=== PATIENT | female | born 1955 | race Hispanic/Latino ===

== ENCOUNTER 2022-04-02 08:15 | Inpatient (IN) | payer MEDICARE ==
[2022-04-02 08:55] LABS: #Eosinphils 0.1 10x3/uL (0.0-0.5); #Monocytes 0.4 10x3/uL (0.0-1.1); #Neutrophils 3.9 10x3/uL (1.5-8.4); %Basophils 0.7 % (0.0-2.0); %Eosinophils 1.2 % (0.0-6.0); %Lymphocytes 24.2 % (18.0-47.0); %Neutrophils 66.6 % (40.0-75.0); Hemoglobin 12.5 g/dL (12.0-15.5); Mean Corpuscular HGB CONC 32.6 g/dL (32.0-36.0); Mean Corpuscular Hemoglobin 30.2 pg (27.0-33.0); Mean Corpuscular Volume 92.5 fl (81.6-98.3); Mean Platelet Volume 8.5 fl (7.4-10.4); Platelet Count 266 10x3/uL (150-450); RBC Distribution Width 12.4 % (11.5-14.5); Red Blood Cell (RBC) Count 4.14 10x6/uL (3.90-5.03); White Blood Cell (WBC) Count 5.8 10x3/uL (3.5-10.5)
[2022-04-02 09:06] LABS: Bilirubin Neg (Negative); Blood, Urine 25 (Negative); Clarity Clear (Clear); Glucose, Urine (Dipstick) Normal (Negative); Ketone, Urine 150 mg/dL (Negative); Leukocyte Negative (Negative); Nitrite Negative (Negative); Protein, Urine (Dipstick) 30 mg/dl (Neg-Trace)
[2022-04-02 09:13] LABS: Amphetamine Not Detected (NotDetected); Barbiturates Screen Not Detected (NotDetected); Benzodiazepine Screen Not Detected (NotDetected); Cocaine Metabolite Screen Not Detected (NotDetected); Methadone Not Detected (NotDetected); Methamphetamine Not Detected (NotDetected); Opiate Screen Detected (NotDetected); Oxycodone Screen Not Detected (NotDetected); Phencyclidine (PCP) Not Detected (NotDetected); THC/Cannabinoid Screen Not Detected (NotDetected); Tricyclic Screen Not Detected (NotDetected)
[2022-04-02 09:18] LABS: RBC/HPF 0-3 HPF (0-3); Squamous Epithelial 0-3 HPF (0-3); WBC/HPF 0-3 HPF (0-3)
[2022-04-02 09:18] LABS: Acetaminophen Less than 10.0 mcg/mL (10.0-30.0); Alcohol Less than 10 mg/dL (Less than 10); Magnesium 1.4 mg/dL (1.6-2.6); Salicylate Less than 8.0 mg/dL (15.0-30.0)
[2022-04-02 09:19] LABS: Bacteria/HPF None Seen HPF (None Seen)
[2022-04-02] MEDS ORDERED: Acetaminophen 500 MG TAB ONE (09:28)
[2022-04-02] MEDS ORDERED: Magnesium 2 GM/50 ML BAG (IN WATER) ONE (09:39)
[2022-04-02 10:13] LABS: SARS-CoV-2 NAA Rapid Test Not Detected (NotDetected)
[2022-04-02 12:12] LABS: Lactic Acid 0.9 mmol/L (0.5-2.2)
[2022-04-02 14:41] LABS: ALT (SGPT) 7 U/L (8-55); AST (SGOT) 17 U/L (5-34); Albumin 3.4 g/dL (3.4-4.8); Alkaline Phosphatase 102 U/L (40-110); Anion Gap 18 mmol/L (10-20); BUN (Urea Nitrogen) 18 mg/dL (9.8-20.1); Bilirubin, Total 0.4 mg/dL (0.2-1.2); Calc. Creatinine Clearance 0 mL/min (70-130); Calcium 9.4 mg/dL (7.8-10.44); Carbon Dioxide 21 mmol/L (23-31); Chloride 106 mmol/L (98-107); Globulin 3.1 g/dL (2.4-3.5); Glucose 80 mg/dL (80-115); Potassium 5.7 mmol/L (3.5-5.1); Protein, Total 6.5 g/dL (5.8-8.1); Sodium 139 mmol/L (136-145)
[2022-04-02] MEDS ORDERED: Ondansetron PF 4 MG/2 ML Vial IVP PRN (16:37)
[2022-04-02] MEDS ORDERED: Ondansetron ODT 4 MG TAB PO PRN (16:37)
[2022-04-02] MEDS ORDERED: Acetaminophen 325 MG TAB PO PRN (16:37)
[2022-04-02] MEDS ORDERED: Acetaminophen 650 MG Suppository PR PRN (16:37)
[2022-04-02] MEDS ORDERED: Sodium Chloride 0.9% 1,000 ML IV SCH ×3 (16:45→22:00)
[2022-04-02] MEDS ORDERED: Calcium Gluconate 4.6 MEQ in Sodium Chloride 0.9% 100 ML IVPB SCH ×2 (16:47→19:15)
[2022-04-02 17:40] LABS: Anion Gap 21 mmol/L (10-20); BUN (Urea Nitrogen) 17 mg/dL (9.8-20.1); Calc. Creatinine Clearance 0 mL/min (70-130); Calcium 9.8 mg/dL (7.8-10.44); Carbon Dioxide 19 mmol/L (23-31); Chloride 108 mmol/L (98-107); Glucose 77 mg/dL (80-115); Sodium 142 mmol/L (136-145)
[2022-04-02 17:42] LABS: Potassium 6.3 mmol/L (3.5-5.1)
[2022-04-02] MEDS ORDERED: Dextrose 50% Abboject 50 ML SYRINGE SLOW IVP SCH ×2 (18:00→18:30)
[2022-04-02] MEDS ORDERED: Insulin Regular 300 UNITS/3 ML VIAL IVP SCH (18:00)
[2022-04-02] MEDS ORDERED: Calcium Gluc 4.6 MEQ/10 ML (100 MG/ML) ONE (18:21)
[2022-04-02 18:23] LABS: Anion Gap 22 mmol/L (10-20); BUN (Urea Nitrogen) 18 mg/dL (9.8-20.1); Calc. Creatinine Clearance 0 mL/min (70-130); Calcium 9.6 mg/dL (7.8-10.44); Carbon Dioxide 19 mmol/L (23-31); Chloride 107 mmol/L (98-107); Glucose 72 mg/dL (80-115); Potassium 5.8 mmol/L (3.5-5.1); Sodium 142 mmol/L (136-145)
[2022-04-02] MEDS ORDERED: Morphine 4 MG/ML VIAL SLOW IVP SCH (18:30)
[2022-04-02 20:11] VITALS: BMI 21.6
[2022-04-02] MEDS ORDERED: LOKELMA 10 GM PACKET PO SCH (21:00)
[2022-04-02] MEDS ORDERED: Sodium Bicarbonate 75 MEQ in Dextrose 5% in Water 500 ML IV SCH (21:30)
[2022-04-02 21:47] LABS: Anion Gap 14 mmol/L (10-20); BUN (Urea Nitrogen) 16 mg/dL (9.8-20.1); Calc. Creatinine Clearance 49 mL/min (70-130); Calcium 9.8 mg/dL (7.8-10.44); Carbon Dioxide 26 mmol/L (23-31); Chloride 105 mmol/L (98-107); Glucose 153 mg/dL (80-115); Potassium 4.1 mmol/L (3.5-5.1); Sodium 141 mmol/L (136-145)
[2022-04-02] MEDS: Morphine 2 MG/ML VIAL SLOW IVP PRN (22:15)
[2022-04-03] MEDS: Morphine 2 MG/ML VIAL SLOW IVP PRN ×5 (02:10→23:45)
[2022-04-03 03:55] LABS: #Eosinphils 0.1 10x3/uL (0.0-0.5); #Monocytes 0.6 10x3/uL (0.0-1.1); #Neutrophils 3.5 10x3/uL (1.5-8.4); %Basophils 0.5 % (0.0-2.0); %Lymphocytes 23.7 % (18.0-47.0); %Neutrophils 63.6 % (40.0-75.0); Mean Corpuscular HGB CONC 32.1 g/dL (32.0-36.0); Mean Corpuscular Hemoglobin 29.7 pg (27.0-33.0); Mean Corpuscular Volume 92.6 fl (81.6-98.3); Mean Platelet Volume 8.9 fl (7.4-10.4); Platelet Count 253 10x3/uL (150-450); RBC Distribution Width 12.1 % (11.5-14.5); Red Blood Cell (RBC) Count 4.04 10x6/uL (3.90-5.03); White Blood Cell (WBC) Count 5.5 10x3/uL (3.5-10.5)
[2022-04-03 04:11] LABS: Anion Gap 14 mmol/L (10-20); BUN (Urea Nitrogen) 12 mg/dL (9.8-20.1); Calc. Creatinine Clearance 57 mL/min (70-130); Calcium 9.8 mg/dL (7.8-10.44); Carbon Dioxide 24 mmol/L (23-31); Chloride 106 mmol/L (98-107); Glucose 81 mg/dL (80-115); Potassium 4.3 mmol/L (3.5-5.1); Sodium 140 mmol/L (136-145)
[2022-04-03] MEDS ORDERED: HYDROmorphone 0.5 MG/0.5 ML SYRINGE SLOW IVP SCH (05:00)
[2022-04-03] MEDS: Sodium Chloride 0.9% 1,000 ML IV SCH (12:45)
[2022-04-03] MEDS ORDERED: tiZANidine HCl 4 MG TAB PO PRN (17:58)
[2022-04-03] MEDS: Senokot 8.6 MG TAB PO SCH ×2 (20:09→21:27)
[2022-04-03] MEDS: levETIRAcetam 500 MG TAB PO SCH (20:10)
[2022-04-03] MEDS: Gabapentin 300 MG CAP PO SCH (20:10)
[2022-04-04] MEDS: Sodium Chloride 0.9% 1,000 ML IV SCH (05:22)
[2022-04-04] MEDS: Morphine 2 MG/ML VIAL SLOW IVP PRN (06:16)
[2022-04-04] MEDS ORDERED: Polyethylene Glycol 3350 17 GM Packet PO SCH (09:00)
[2022-04-04] MEDS: Gabapentin 300 MG CAP PO SCH ×3 (10:19→20:07)
[2022-04-04] MEDS: DULoxetine 30 MG CAP PO SCH (10:19)
[2022-04-04] MEDS: levETIRAcetam 500 MG TAB PO SCH ×2 (10:19→20:08)
[2022-04-04] MEDS: Stress 600 With Zinc 1 TAB PO SCH (10:19)
[2022-04-04] MEDS: Morphine 4 MG/ML VIAL SLOW IVP PRN ×2 (10:20→15:46)
[2022-04-04] MEDS: Polyethylene Glycol 3350 17 GM Packet PO SCH (10:20)
[2022-04-04] MEDS: HYDROcodone/Acetaminophen 7.5/325 mg Tablet PO PRN (20:08)
[2022-04-04] MEDS: Senokot 8.6 MG TAB PO SCH (20:11)
[2022-04-05] MEDS: HYDROcodone/Acetaminophen 7.5/325 mg Tablet PO PRN ×3 (00:23→12:32)
[2022-04-05] MEDS: Sodium Chloride 0.9% 1,000 ML IV SCH (00:30)
[2022-04-05] MEDS: Polyethylene Glycol 3350 17 GM Packet PO SCH (08:11)
[2022-04-05] MEDS: Gabapentin 300 MG CAP PO SCH ×3 (08:11→21:06)
[2022-04-05] MEDS: Stress 600 With Zinc 1 TAB PO SCH (08:11)
[2022-04-05] MEDS: DULoxetine 30 MG CAP PO SCH (08:11)
[2022-04-05] MEDS: levETIRAcetam 500 MG TAB PO SCH ×2 (08:11→21:06)
[2022-04-05] MEDS ORDERED: Albuterol Sulfate 2.5 mg/3 ml Neb NEB PRN ×2 (15:52→16:00)
[2022-04-05] MEDS ORDERED: Lidocaine 5% Patch TD SCH (16:00)
[2022-04-05] MEDS: HYDROcodone/Acetaminophen 10/325 mg Tablet PO PRN ×2 (16:22→21:06)
[2022-04-05] MEDS: Senokot 8.6 MG TAB PO SCH (21:33)
[2022-04-06] MEDS: HYDROcodone/Acetaminophen 10/325 mg Tablet PO PRN ×3 (00:47→10:40)
[2022-04-06] MEDS ORDERED: Transdermal Patch Removal TOP SCH (04:00)
[2022-04-06] MEDS: levETIRAcetam 500 MG TAB PO SCH (10:41)
[2022-04-06] MEDS: Gabapentin 300 MG CAP PO SCH (10:42)
[2022-04-06] MEDS: DULoxetine 30 MG CAP PO SCH (10:42)
[2022-04-06] MEDS: Stress 600 With Zinc 1 TAB PO SCH (10:42)
[2022-04-06] MEDS: Polyethylene Glycol 3350 17 GM Packet PO SCH (10:42)
[2022-04-06 10:58] VITALS: BP 129/74; TEMP 98.2
[2022-04-06] MEDS ORDERED: Lidocaine 5% Patch TD SCH (16:00)
== END 2022-04-06 13:00 | disposition home or self-care (01) | DRG 552 ==
LOC: CSHERS 08:15 → CSHTELE 18:02
PROVIDERS: ADMIT Family Medicine; ATTEND Family Medicine
DX: S32.19XA Other fracture of sacrum, initial encounter for closed fracture (principal); E87.2 Acidosis; N17.9 Acute kidney failure, unspecified; Q24.0 Dextrocardia; R53.1 Weakness; E83.42 Hypomagnesemia; E87.5 Hyperkalemia; E86.0 Dehydration; R62.7 Adult failure to thrive; N18.30 Chronic kidney disease, stage 3 unspecified; R60.9 Edema, unspecified; F17.200 Nicotine dependence, unspecified, uncomplicated; W18.30XA Fall on same level, unspecified, initial encounter; Z20.822 Contact with and (suspected) exposure to COVID-19; Z93.3 Colostomy status; Z68.21 Body mass index [BMI] 21.0-21.9, adult; Z79.891 Long term (current) use of opiate analgesic; Z88.8 Allergy status to other drugs, medicaments and biological substances; Z79.899 Other long term (current) drug therapy; Z90.49 Acquired absence of other specified parts of digestive tract; Z71.6 Tobacco abuse counseling; Z74.01 Bed confinement status; Z86.018 Personal history of other benign neoplasm
CPT/HCPCS: 36415; 36416; 71045; 72170; 74176; 76705; 80048; 80053; 80306; 80307; 81003; 81015; 82550; 82565; 83605; 83735; 84443; 85025; 93005; 94640; 94760; 96365; 96366; J0610; J1170; J1815; J2270; J3475; J3490; J7050; J7611; J7999; U0002